=== PATIENT | female | born 1990 | race Caucasian/White ===

== ENCOUNTER 2023-02-05 21:28 | Inpatient (IN) | payer OTHER ==
[~2023-02-05] VITALS: Ht 160 cm; Wt 95.3 kg
--- NOTE | 2023-02-05 21:30 | NUR ---
BIB FAMILY FROM HOME FOR SEIZURE. HX SEIZURE. PT POST ICTAL. A/OX3. TOLERATING R/A WELL WITH NO RESP DISTRESS. CONNECTED PT TO POX AND MONITOR. SEIZURE PRECAUTIONS IN PLACE. SAFETY MEASURES IN PLACE.
[2023-02-05] MEDS ORDERED: LORAZEPAM INJ 2 MG/ML VIAL ONE (21:38)
--- NOTE | 2023-02-05 21:40 | NUR ---
ATIVAN 2MG IM ADMINISTERED VERBAL ORDERS FROM DR ELINOR SANTIAGO
[2023-02-05] MEDS ORDERED: LEVETIRACETAM (500MG) 500 MG/5 ML VIAL IV ONE (21:46)
--- NOTE | 2023-02-05 21:50 | NUR ---
EMT AT PT'S BEDSIDE FOR EKG
--- NOTE | 2023-02-05 21:56 | NUR ---
COVID ANTIGEN SWAB COLLECTED AND SENT TO LAB
--- NOTE | 2023-02-05 21:56 | NUR ---
[facility]IVER FORM SIGNED
--- NOTE | 2023-02-05 21:56 | NUR ---
LOOM OPERATOR APPRENTICE AT PT'S BEDSIDE
[2023-02-05] MEDS ORDERED: LEVETIRACETAM (500MG) 1,000 MG in IV NS 0.9% 100 ML IV ONE (22:00)
[2023-02-05] MEDS ORDERED: LORAZEPAM INJ 2 MG/ML VIAL IM ONE (22:00)
[2023-02-05] MEDS ORDERED: ONDANSETRON HCL/PF 4 MG/2 ML VIAL IV ONE (22:00)
[2023-02-05] MEDS ORDERED: ONDANSETRON HCL/PF 4 MG/2 ML VIAL ONE (22:06)
--- NOTE | 2023-02-05 22:13 | NUR ---
Mery nichols in [facility] - 02/05/23 at 2221 by RAMIREZ ELLE FROM HOME C/O X CP X3HRS AGO
--- NOTE | 2023-02-05 22:19 | NUR ---
PT TAKEN TO CT VIA [facility]
[2023-02-05] MEDS ORDERED: IOHEXOL-300 100 ML VIAL IV ONE (22:21)
[2023-02-05] MEDS ORDERED: CT SWABBABLE VALVE TRANS SET 1 EA INFUS.SET MC ONE (22:21)
[2023-02-05] MEDS ORDERED: IV NS 0.9% 250 ML IV ONE (22:22)
[2023-02-05 22:32] LABS: BASOPHILS # (AUTO) 0.1 K/uL (0.0-0.2); BASOPHILS % (AUTO) 0.6 % (0.0-2.0); EOSINOPHILS % (AUTO) 8.6 % (0.0-6.0); HEMATOCRIT 37 % (33-45); HEMOGLOBIN 11.6 g/dL (11.5-14.8); LYMPHOCYTES # (AUTO) 6.5 K/uL (0.8-4.8); LYMPHOCYTES % (AUTO) 46.4 % (20.0-44.0); MEAN CORPUSCULAR HGB CONC 31 g/dl (31.0-36.0); MEAN CORPUSCULAR VOLUME 84 fL (82-100); MONOCYTES # (AUTO) 1.2 K/uL (0.1-1.30); MONOCYTES % (AUTO) 8.7 % (2.0-12.0); NEUTROPHILS % (AUTO) 35.7 % (43.0-81.0); PLATELET COUNT (AUTO) 355 K/uL (150-450); RED BLOOD CELL COUNT(AUTO) 4.43 MIL/uL (4.0-5.2); WHITE BLOOD COUNT (AUTO) 14.1 K/uL (4.3-11.0)
[2023-02-05 22:48] LABS: ALBUMIN 3.5 g/dL (3.4-5.0); BILIRUBIN,TOTAL 0.2 mg/dL (0.2-1.0); CALCIUM, SERUM 9.7 mg/dL (8.5-10.1); POTASSIUM 3.7 mmol/L (3.5-5.1); TOTAL PROTEIN, SERUM 7.7 g/dL (6.4-8.2)
--- NOTE | 2023-02-05 22:56 | NUR ---
PT RETURNED TO ER BED [address]
[2023-02-05 23:13] LABS: EOSINOPHILS % (MANUAL) 6 % (0-4); LYMPHOCYTES % (MANUAL) 56 % (16-48); MONOCYTES % (MANUAL) 7 % (0-11.0); NEUTROPHILS % (MANUAL) 30 (42-76); REACTIVE LYMPHOCYTES 1 % (0-0)
[2023-02-06] MEDS ORDERED: IV NS 0.9% 1,000 ML IV PRN (00:30)
[2023-02-06] MEDS ORDERED: Z GUARD REMEDY 4 OZ OINT TP PRN (00:30)
[2023-02-06] MEDS ORDERED: ZOLPIDEM TARTRATE 5 MG TABLET PO PRN (00:30)
[2023-02-06] MEDS ORDERED: LORAZEPAM INJ 2 MG/ML VIAL IV PRN (00:30)
[2023-02-06] MEDS ORDERED: MAG HYDROX/AL HYDROX/SIMETH 30 ML UDC PO PRN (00:30)
[2023-02-06] MEDS ORDERED: MAGNESIUM HYDROXIDE 30 ML UDC PO PRN (00:30)
[2023-02-06] MEDS ORDERED: ONDANSETRON HCL/PF 4 MG/2 ML VIAL IVP PRN (00:30)
[2023-02-06] MEDS ORDERED: ACETAMINOPHEN 325 MG TABLET PO PRN (00:30)
--- NOTE | 2023-02-06 01:16 | NUR ---
BED 304-2
--- NOTE | 2023-02-06 01:25 | NUR ---
REPORT GIVEN TO RODNEY Oconnor RN FOR JANN
--- NOTE | 2023-02-06 01:49 | NUR ---
PT TRANSFERRING TO 304-1 VIA ACLS PROTOCOL. VSS. ALL BELONGINGS WITH PT.
[2023-02-06 02:08] VITALS: BP 94/58
--- NOTE | 2023-02-06 02:08 | NUR ---
MS NUCLEAR POWERPLANT MECHANIC HELPER NOTE RECEIVED PT FROM ER FROM NURSE DOCKERY. PT IS BEING ADMITTED WITH DX OF SEIZURE IN ROOM 304-1. PT IS A/O X4. ABLE TO MAKE NEEDS KNOWN. ON ROOM AIR. NO S/S OF RESPIRATORY DISTRESS. NO C/O PAIN AT THIS TIME. SKIN IS INTACT. ON BED REST D/T SEIZURE PRECAUTION. IV ACCESS TO RIGHT AC #20 G WITH NS RUNNING AT 75 ML/HR, IV INTACT, AND PATENT. BELONGING CHECKED, AND BELONGING LIST SIGNED. SAFETY MEASURES MAINTAINED: BED IN LOW POSITION, SR UP X4, AND SR PADDED, CALL LIGHT WITHIN REACH. WILL CONTINUE TO MONITOR PT.
--- NOTE | 2023-02-06 07:00 | NUR ---
RN CLOSING NOTE PT LEFT IN STABLE CONDITION. WILL ENDORSE PT TO INCOMING SHIFT NURSE FOR CONTINUITY FO CARE.
--- NOTE | 2023-02-06 07:30 | NUR ---
AXLE AND FRAME MECHANIC OPENING NOTES RECEIVED PT AWAKE IN BED, ALERT/ORIENTED X4, NO COMPLAINTS OF PAIN. STABLE ON ROOM AIR. ON TELE MONITOR SR 94. CONTINENT ON BEDREST. SKIN INTACT. NPO STATUS. WANTS TO GO HOME. IV ACCESS ON RAC #20G RUNNING NS @75 ML/HR. FALL AND SAFETY MEASURES DONE, BED LOCKED IN LOWEST POSITION, SIDE RAILS UP X2, CALL LIGHT WITHIN REACH. WILL ADMINISTER ALL SCHEDULED MEDS ORDERED. WILL CONTINUE TO MONITOR.
[2023-02-06 08:00] VITALS: BP 120/80
[2023-02-06] MEDS ORDERED: LEVETIRACETAM (500MG) 500 MG in IV NS 0.9% 100 ML IV SCH ×3 (10:00→11:00)
[2023-02-06] MEDS ORDERED: OLAN5TAB3 PO (12:20)
[2023-02-06] MEDS ORDERED: BRIV50TA PO (12:20)
[2023-02-06] MEDS ORDERED: CLON1TAB12 PO (12:20)
[2023-02-06] MEDS ORDERED: ZONI50CA15 PO (12:20)
[2023-02-06] MEDS ORDERED: LAMO200T10 PO (12:20)
[2023-02-06] MEDS ORDERED: CARI1.5C PO (12:20)
[2023-02-06] MEDS ORDERED: LAMO25TA10 PO (12:20)
[2023-02-06] MEDS ORDERED: DULO60CA45 PO (12:20)
--- NOTE | 2023-02-06 14:15 | NUR ---
SIGNAL TESTER NOTES PT ALERT ORIENTED X4, STABLE UPON DISCHARGE, ACCOMPANIED TO THE [facility]. IV ACCESS, TELE MONITOR, AND ID ARM BAND REMOVED. ALL BELONGINGS CHECKED AND RECONCILED. PT EDUCATION AND HEALTH TEACHINGS DONE. NO COMPLAINTS OF PAIN, NO DISTRESS NOTED. CHARGE NURSE AWARE.
== END 2023-02-06 14:15 | DRG 101 ==
LOC: ER 21:30 → TELE 02-06 01:21
PROVIDERS: ADMIT Student in an Organized Health Care Education/Training Program; ATTEND Student in an Organized Health Care Education/Training Program
DX: G40.909 Epilepsy, unspecified, not intractable, without status epilepticus (principal); D72.829 Elevated white blood cell count, unspecified; F41.9 Anxiety disorder, unspecified; F39 Unspecified mood [affective] disorder; Z20.822 Contact with and (suspected) exposure to COVID-19; Z88.0 Allergy status to penicillin
CPT/HCPCS: 36415; 70450-TC; 71260-TC; 72125-TC; 73030-TC; 73564-TC; 80048-TC; 80076-TC; 85025-TC; A4223; C9803; G0378; J1953; J2060; J2405; J7030; J7050; Q9967